=== PATIENT | male | born 1935 | race Caucasian/White ===

== ENCOUNTER 2020-01-09 18:22 | Outpatient (CLI) | payer MEDICARE, OTHER, SELFPAY ==
[2020-01-10 15:20] LABS: COVID-19 RT-PCR Result Not Detected (NotDetected)
== END 2020-01-09 18:42 ==
PROVIDERS: PCP Family Medicine; Visit Provider Family Medicine
DX: R50.9 Fever, unspecified (principal); Z11.59 Encounter for screening for other viral diseases
CPT/HCPCS: U0003; 85025